=== PATIENT | female | born 1945 | race Caucasian/White ===

== ENCOUNTER 2019-03-12 20:04 | Emergency (ER) | payer MEDICARE, OTHER ==
[~2019-03-12] VITALS: Ht 157.5 cm; Wt 62.6 kg
--- OUTSIDE RECORDS SUMMARY | ~2019-03-12 | XMS | Clinical Summary ---
Demographics + + + | Address | [address] | | | [place] [address] | + + + | Home Phone | | + + + | Preferred Language | Unknown | + + + | Marital Status | Unknown | + + + | Muslim Affiliation | Unknown | + + + | Race | Unknown | + + + | Ethnic Group | Unknown | + + + Author + + + | Author | [facility] | | | and [place] | + + + | Organization | [facility] | | | and [place] | + + + | Address | Unknown | + + + | Phone | Unavailable | + + + Care Team Providers + +------+ + | Care Insurance Producer Name | Role | Phone | + +------+ + | Pcp, Prov Inactive | PCP | | + +------+ + Allergies Not on File Medications Not on file Active Problems Not on file Social History + +-------+ +--------+------+ | Tobacco Use | Types | Packs/Day | Years | Date | | | | | Used | | + +-------+ +--------+------+ | Never Assessed | | | | | + +-------+ +--------+------+ + + + | Sex Assigned at | Date Recorded | | | | + + + | Not on file | | + + + + + + + | Job Start Date | Occupation | Industry | + + + + | Not on file | Not on file | Not on file | + + + + + + + + | Travel History | Travel Start | Travel End | + + + + + + | No recent travel history available. | + + Last Filed Vital Signs Not on file Plan of Treatment + + + + + | Health Maintenance | Due Date | Last Done | Comments | + + + + + | Vaccine: | | | | | Dtap/Tdap/Td (1 - | 5 | | | | Tdap) | | | | + + + + + | Vaccine: Zoster (1 | | | | | of 2) | 6 | | | + + + + + | Breast Cancer | | | | | Screening | 1 | | | + + + + + | Vaccine: | | | | | Pneumococcal 65+ | 1 | | | | Low/Medium Risk (1 | | | | | of 2 - PCV13) | | | | + + + + + | Vaccine: Influenza | | | | | (#1) | 9 | | | + + + + + Results Not on filefrom Last 3 Months Insurance + +--------+ +--------+-------+---------+--------+ | Payer | Benefi | Subscriber | Effect | Phone | Address | Type | | | t Plan | ID | tiff | | | | | | / | | Dates | | | | | | Group | | | | | | + +--------+ +--------+-------+---------+--------+ | [employer] | [employer] | | Effect | | | Indemn | | SERVICE | YELLOW | | tiff | | | ity | | | HAWK | | for | | | | | | | | all | | | | | | | | dates | | | | + +--------+ +--------+-------+---------+--------+ + +--------+ +--------+ + + | Guarantor Name | Accoun | Relation to | Date | Phone | Billing Address | | | t Type | Patient | of | | | | | | | | | | + +--------+ +--------+ + + | Miriam Mario | Person | Self [birth year] | [address] | | | [address] | | 1945 | [phone] | [place] [id number] | | | cher | | | 5 (Home) | | + +--------+ +--------+ + + Advance Directives Patient has advance care planning documents on file. For more information, please contact:[facility] [place] [address]"
--- OUTSIDE RECORDS SUMMARY | ~2019-03-12 | XMS | Clinical Summary ---
Demographics + + + | Address | [address] | | | [place] [address] | + + + | Home Phone | | + + + | Preferred Language | Unknown | + + + | Marital Status | Unknown | + + + | Nondenominational Affiliation | Unknown | + + + | Race | Unknown | + + + | Ethnic Group | Unknown | + + + Author + + + | Author | [facility] | | | and [place] | + + + | Organization | [facility] | | | and [place] | + + + | Address | Unknown | + + + | Phone | Unavailable | + + + Care Team Providers + +------+ + | Care Media Planner Name | Role | Phone | + [...] | | | + +--------+ +--------+-------+---------+--------+ | [facility] | [employer] | | Effect | [...] | [address] | | 1945 | [phone] | [place] [id number] | | | cher | | | 5 (Home) | | + +--------+ +--------+ + + Advance Directives Patient has advance care planning documents on file. For more information, please contact:[facility] [place] [address]"
[~2019-03-12 20:04] MED LIST: AMOXICILLIN500 MG PO; ASPIRIN EC81 MG PO; ATIVAN1 MG PO; BENADRYL25 MG PO; ELIMITE60 GM TP; LORAZEPAM1 MG PO; MECLIZINE HCL25 MG PO; MEDROL4 M1 PO; PREDNISONE20 MG PO; TRIAMCINOLONE A15 GM TOP
[2019-03-12] MEDS ORDERED: PREDNISONE20 MG PO (20:20)
== END 2019-03-12 20:39 | disposition home or self-care (01) ==
LOC: ED 20:04
DX: L50.9 Urticaria, unspecified (principal); I10 Essential (primary) hypertension; F17.200 Nicotine dependence, unspecified, uncomplicated; Z88.1 Allergy status to other antibiotic agents
CPT/HCPCS: 99282; J7512

== ENCOUNTER 2024-02-23 16:34 | Emergency (ER) | payer MEDICARE, OTHER ==
[~2024-02-23] VITALS: Ht 157.5 cm; Wt 69.5 kg
[2024-02-23] MEDS ORDERED: INHALER, ASSIST DEVICES 1 EACH SPACER MISC ONE (19:15)
[2024-02-23] MEDS ORDERED: ALBUTEROL SULFATE 8 GM HOME.PACK INH ONE (19:15)
[2024-02-23] MEDS ORDERED: PREDNISONE20 MG PO (19:53)
[2024-02-23 20:22] LABS: INFLUENZA B NAA NEGATIVE (NEGATIVE); RESPIRATORY SYNCYTIAL VIR NAA NEGATIVE (NEGATIVE)
[2024-02-23 20:35] VITALS: BP 159/63
== END 2024-02-23 20:35 | disposition home or self-care (01) ==
LOC: ED 16:34
PROVIDERS: Internal Medicine
DX: J06.9 Acute upper respiratory infection, unspecified (principal); I10 Essential (primary) hypertension; F17.200 Nicotine dependence, unspecified, uncomplicated; Z87.891 Personal history of nicotine dependence; Z88.1 Allergy status to other antibiotic agents; Z88.8 Allergy status to other drugs, medicaments and biological substances; Z79.82 Long term (current) use of aspirin; Z11.52 Encounter for screening for COVID-19
CPT/HCPCS: 71045; 87502; 99285-25; U0002

== ENCOUNTER 2024-07-07 11:59 | Emergency (ER) | payer MEDICARE, OTHER ==
[~2024-07-07] VITALS: Ht 157.5 cm; Wt 70.3 kg
[2024-07-07 12:32] LABS: PH, VENOUS 7.447 (7.31-7.41)
[2024-07-07 12:35] LABS: HEMOGLOBIN 14.3 g/dL (12.0-18.0); MCH 31.7 (27-36); MCHC 34.8 g/dl (30-36); MCV 91.2 fl (81-99); PLATELET COUNT 321 K/uL (140-440); RBC 4.49 M/ul (4.3-5.7); RDW 12.8 (10.5-15.0)
[2024-07-07 12:53] LABS: ALBUMIN 3.5 g/dL (3.4-5.0); ALBUMIN/GLOBULIN RATIO 0.92 (1.1-2.4); BILIRUBIN, TOTAL 0.3 mg/dL (0.2-1.0); BUN/CREATININE RATIO 7.04 (6.0-28.6); CALCIUM 9.6 mg/dL (8.5-10.1); CREATININE, SERUM 0.71 mg/dL (0.55-1.02); PROTEIN, TOTAL 7.3 g/dL (6.4-8.2)
[2024-07-07 12:54] LABS: BASOPHILS, MANUAL DIFF 2; LYMPHOCYTES, MANUAL DIFF 37; MONOCYTES, MANUAL DIFF 1; NEUTROPHILS, MANUAL DIFF 60
[2024-07-07 12:56] LABS: EOSINOPHILS, MANUAL DIFF 0
[2024-07-07 12:58] LABS: CORONAVIRUS COVID-19 AG NEGATIVE (NEGATIVE); INFLUENZA A AG NEGATIVE (NEGATIVE); INFLUENZA B AG NEGATIVE (NEGATIVE)
[2024-07-07 13:30] VITALS: BP 147/90
[2024-07-07] MEDS ORDERED: BENZONATATE200 MG PO (13:58)
[2024-07-07] MEDS ORDERED: VENTOLIN HFA18 GM INH (13:58)
--- NOTE | 2024-07-07 22:24 | EKG ---
[facility] [address] [facility] [place] [address] Signed Normal sinus rhythm Normal ECG No previous ECGs available Confirmed by Kathy Gomez MD () on 07/07/2024 10:24:01 PM Electronically Signed By: KATHY GOMEZ MD 07/07/242223 PATIENT NAME: MARIA INES ALBA Electrocardiogram DATE OF : 47 PHYSICIAN: KATHY GOMEZ MD REPORT #: [id number] REPORT IS CONFIDENTIAL AND NOT TO BE RELEASED WITHOUT AUTHORIZATION
== END 2024-07-07 14:05 | disposition home or self-care (01) ==
LOC: ED 11:59
PROVIDERS: Emergency Medicine
DX: J06.9 Acute upper respiratory infection, unspecified (principal); R07.89 Other chest pain; I10 Essential (primary) hypertension; F17.200 Nicotine dependence, unspecified, uncomplicated; Z88.1 Allergy status to other antibiotic agents; Z79.82 Long term (current) use of aspirin
CPT/HCPCS: 36415; 80053; 80307; 82803; 84484; 85025; 93005; 93010; 99285